=== PATIENT | female | born 1935 | race Caucasian/White ===

== ENCOUNTER 2016-05-08 09:30 | Emergency (ER) | payer OTHER ==
[2016-05-08 10:03] VITALS: BP 133/69; PULSE 83; RESP 16; TEMP 98.4; O2SAT 96
--- NOTE | 2016-05-08 10:55 | UCPHY ---
[id number]/02/17 10:43 HPI/ROS: CHIEF COMPLAINT: URI symptoms x5 days HISTORY OF PRESENT ILLNESS: 80-year-old female in the urgent care with her who is also sick with similar, complaining of 5 days of nonproductive cough, nasal congestion, sinus congestion fullness, otalgia. No dyspnea. No chest pain. No back pain. No abdominal pain. No flank pain. No urinary complaints. No nuchal rigidity. No altered mentation. REVIEW OF SYSTEMS: A ten point review of systems was performed and is negative with the exception of the items mentioned in the HPI PAST MEDICAL & SURGICAL HISTORY: No influenza vaccination SOCIAL HISTORY:nonsmoker, PHYSICAL EXAM (Prior to examination, patient consented to physical exam, hands were washed and my usual and customary physical exam procedures followed) 1) GENERAL: Well-developed, well-nourished, alert and oriented. Appears to be in no acute distress. 2) HEAD: Normocephalic, atraumatic 3) HEENT: Pupils equal, round, reactive to light bilaterally. Sclera anicteric. Nasopharynx, oropharynx, clear, no lesions. Ears bilaterally with normal tympanic membranes. 4) NECK: Full range of motion, no meningeal signs. 5) LUNGS: Clear auscultation bilaterally, no wheezes, no rhonchi, no retractions. 6) HEART: Regular rate and rhythm, no murmur, no heave, no gallop. 7) ABDOMEN: No guarding, no rebound, no focal tenderness, negative McBurney's, negative Gonzalez's, negative Rovsing's, negative peritoneal sign, 8) MUSCULOSKELETAL: Moving all extremities, no focal areas of tenderness, no obvious trauma. No peripheral edema or discoloration. 9) BACK: No CVA tenderness. 10) SKIN: No rash, no petechiae. 11) Psychiatric: Patient is oriented X 3, there is no agitation. DIFFERENTIAL DIAGNOSIS: in no particular include but limited to pneumonia, bronchitis, influenza, viral URI (Liborio,Esteban Jessica) Constitutional: Initial Vital Signs Temperature (C) 36.9 C 05/08/16 10:00 Heart Rate 83 05/08/16 10:00 Respiratory Rate 16 05/08/16 10:00 Blood Pressure 133/69 H 05/08/16 10:00 O2 Sat (%) 96 05/08/16 10:00 O2 Delivery Mode Room Air Allergies/Adverse Reactions: erythromycin base Allergy (Verified 05/08/16 10:04) levofloxacin [From Levaquin] Allergy (Verified 05/08/16 10:04) nitrofurantoin Allergy (Verified 05/08/16 10:04) Penicillins Allergy (Verified 05/08/16 10:04) Sulfa (Sulfonamide Antibiotics) Allergy (Verified 05/08/16 10:03) Home Medications: Medication Instructions Recorded ASPIRIN 05/08/16 Albuterol [Proventil Inhaler HFA 1 - 2 puffs IH Q4PRN PRN #1 mdi 05/08/16 (*)] Benzonatate [Tessalon Pearles (RX)] 200 mg PO TID PRN #15 cap 05/08/16 Hydrochlorothiazide 05/08/16 Lisinopril 05/08/16 Presser Vision Eye Vitamins 05/08/16 Pseudoephedrine HCl [Sudafed 12 120 mg PO BID #15 tab 05/08/16 Hour 120mg (*)] Tylenol 05/08/16 Vitamin D 05/08/16 Medical Decision Making ED Course/Re-evaluation: You were examined in the emergency department today for upper respiratory infection (URI) like symptoms. While more URIs are caused by viral illnesses, we cannot always exclude the possibility of a bacterial infection that may require treatment with antibiotics. Return to the emergency department immediately for change in breathing habits, change in voice, change in swallowing habits, change in mental status, or any other symptoms that concern you. (Esteban Capone) Urgent Care PA supervision Physician documentation: The patient was evaluated and managed by the physician entry level assistant manager. My co- signature indicates that I have reviewed this chart and I agree with the findings and plan of care as documented. I am is secondary supervising physician. (Bhupendra Dixon) Departure - Departure Disposition: Home, Routine, Self-Care Clinical Impression: Upper respiratory infection Condition: Good Instructions: Upper Respiratory Infection (ED) Referrals: REYMUNDO YAÑEZ [Primary Care Provider] - 2-3 days without fail Prescriptions: Albuterol [Proventil Inhaler HFA (*)] 1 - 2 puffs IH Q4PRN PRN #1 mdi PRN Reason: Cough, Moderate Pseudoephedrine HCl [Sudafed 12 Hour 120mg (*)] 120 mg PO BID #15 tab Benzonatate [Tessalon Pearles (RX)] 200 mg PO TID PRN #15 cap PRN Reason: Cough, Moderate - PQRS PQRS Measurement: 134: Depression screening and followup, PRIME MD-PHQ2 (12 years and older) Over the last 2 weeks, how often have you been bothered by any of the following problems? 1. Feeling down, depressed, or hopeless? 2. Little interest or pleasure in doing things? Patient answered no to both 1 and 2 130: Documentation of medications. Reviewed all patient medications, doses, route and frequency. . 226: Do you smoke? No. 47: 65 and older: Advanced care planning. Patient has advanced directive. 51: 18 years old and older with diagnosis of COPD, spirometry performance. . Patient has no history of COPD 52: 18 years old and older with COPD and symptoms of COPD or FEV1<60% predicted prescribed a B Agonist. Not applicable (Esteban Capone)
== END 2016-05-08 11:00 | disposition home or self-care (01) ==
LOC: CED 09:30
DX: J06.9 Acute upper respiratory infection, unspecified (principal); R09.81 Nasal congestion; H92.09 Otalgia, unspecified ear
CPT/HCPCS: 99214-PO; G0463-PO